=== PATIENT | male | born 1960 | race African-American/Black ===

== ENCOUNTER 2017-01-22 09:15 | Emergency (ER) | payer MEDICAID ==
--- NOTE | 2017-01-22 09:26 | EDPHY ---
H & P Stated Complaint: reported fell in [place] for multiple hours Time Seen by Provider: 01/22/17 09:26 - Personal History Current Tetanus/Diphtheria Vaccine: Yes Current Tetanus Diphtheria and Acellular Pertussis (TDAP): Yes Tetanus Vaccine Date: < 10 years - Medical/Surgical History Hx Asthma: No Hx Chronic Respiratory Disease: No Hx Diabetes: No Hx Cardiac Disease: No Hx Renal Disease: No Hx Cirrhosis: No Hx Alcoholism: No Hx HIV/AIDS: No Hx Splenectomy or Spleen Trauma: No Other PMH: HTN, CVA - Social History Smoking Status: Never smoked Constitutional: Initial Vital Signs Temperature (C) 36.3 C 01/22/17 09:15 Heart Rate 79 01/22/17 09:15 Respiratory Rate 20 01/22/17 09:15 Blood Pressure 164/114 H 01/22/17 09:15 O2 Sat (%) 94 01/22/17 09:15 O2 Delivery Mode Room Air Allergies/Adverse Reactions: No Known Allergies Allergy (Verified 01/22/17 09:20) Home Medications: Medication Instructions Recorded Aspirin [Aspirin 81mg (*)] 81 mg PO DAILY 09/14/15 Atorvastatin Calcium [Lipitor 80 80 mg PO DAILY #30 tablet 09/14/15 mg] Hydrochlorothiazide [HCTZ (*)] 12.5 mg PO DAILY #30 cap 09/14/15 Lisinopril [Zestril 20 mg (*)] 20 mg PO DAILY #30 tab 09/14/15 Metoprolol Tartrate [Lopressor 25 25 mg PO BID #60 tab 09/14/15 mg (*)] hydrALAZINE [Apresoline 50 mg (*)] 50 mg PO BID #60 tab 09/14/15 Xarelto 01/22/17 Medical Decision Making ED Course/Re-evaluation: CHIEF COMPLAINT: Environmental exposure HISTORY OF PRESENT ILLNESS: The patient is a 56 y/o male arriving via EMS after falling into a [place] for a couple of hours. He was unable to get up because the rocks were slippery. He is currently cold. Denies loss of consciousness, head injury, alcohol use. REVIEW OF SYSTEMS: A 10 point review of systems was performed and is negative with the exception of the elements mentioned in the history of present illness. PHYSICAL EXAM: HR, BP, O2 Sat, RR. Temp noted General Appearance: Alert, well hydrated, appropriate, and non-toxic appearing. Head: Atraumatic without scalp tenderness or obvious injury Eyes: Pupils equal, round, reactive to light and accommodation, EOMI, no trauma , no injection. Ears: Clear bilaterally, no perforation, normal landmarks Nose: Atraumatic, no rhinorrhea, clear. Throat: Mucus membranes moist. Neck: Supple, nontender, no lymphadenopathy. Respiratory: No retractions, no distress, no wheezes, and no accessory muscle use. Lungs are clear to auscultation bilaterally. Cardiovascular: Regular rate and rhythm, no murmurs, rubs, or gallops. Good capillary refill all extremities. Gastrointestinal: Abdomen is soft, nontender, non-distended, no masses, no rebound, no guarding, no peritoneal signs. Musculoskeletal: Normal active ROM of all extremities, atraumatic. Neurological: Alert, appropriate, and interactive. Non-focal neuro. Skin: No rashes, good turgor, no nodules on palpation. Past medical history: Hypertension, CVA Past surgical history: Denies Family history: Noncontributory Social history: Transient, non-smoker DIFFERENTIAL DIAGNOSIS: The differential diagnosis for the patient's hypothermia included but was not limited to hypothermia, intoxication, illicit drug use, or musculoskeletal injury. MEDICAL DECISION MAKING: The patient is a 56 y/o male presenting with mild hypothermia that is now resolved. His initial temperature was 36.3, his physical exam is normal. Reassessed patient, he is warmer. Return precautions provided; patient is comfortable with this plan. Departure - Departure Disposition: Home, Routine, Self-Care Clinical Impression: Hypothermia Qualifiers: Encounter type: initial encounter Qualified Code(s): T68.XXXA - Hypothermia, initial encounter Condition: Good Instructions: Acute Hypothermia (ED) Additional Instructions: 1. Follow-up with your primary doctor within 72 hours. 2. Return to the Emergency Department for fever, chest pain, shortness of breath , increasing pain or other worsening of condition. Referrals: [facility],. [Clinic] - As per Instructions Report Scribed for: Herberth Kilgore Report Scribed by: Jane Ng Date of Report: 01/22/17 Time of Report: 09:39
[2017-01-22 11:06] VITALS: BP 158/108; PULSE 74; RESP 16; TEMP 96.8; O2SAT 92
--- NOTE | 2017-01-22 11:30 | ASMTCMCOM ---
CM Note CM Note Notes: Patient brought into ED via EMS after being found in [place], reportedly he fell into the [place] and could not get out. Patient's clothes are wet and cold. Patient rewarmed with warm blankets, and provided dry clothes including t-shirt, sweater and pants. Patient provided dry socks. No shoes in patient's size were available. Patien's shoes to dry out. Patient states he has been staying with his girlfriend in [place] but came out to [place] "because I used to live out here and just wanted to come out here." Patient has not been to [facility] since August 2015. Patient states he has plans to stay with a friend here in [place] and eventually get his own apartment in [place]. Patient has no other requests at this time. CM available for further assistance. Date Signed: 01/22/2017 11:29 AM Electronically Signed By:Yesi Singer RN
--- NOTE | 2017-01-22 11:31 | ASDISCHSUM ---
Discharge Information Plan Status:Home with No Needs Medically Cleared to Leave: Discharge Date:01/22/2017 11:05 AM CM D/C Disposition:Home, Routine, Self-Care ADT D/C Disposition:Home, Routine, Self-Care Projected Discharge Date:01/22/2017 11:05 AM Transportation at D/C:Self Discharge Delay Reason: Follow-Up Date:01/22/2017 11:05 AM Discharge Slot: Final Diagnosis: Placement Information Patient Contact Information Contact Name:NEMO Relationship: Address:[address] Work Phone: City:[place] Alternate Phone: [facility]/Zip Code:[place] [address] Email: Financial Information Financial Class: Primary Plan Desc:[employer]ER Primary Plan Number:[id number] Secondary Plan Desc: Secondary Plan Number: Assessment Information [facility] CM Progress Note CM Note CM Note Notes: Patient brought into ED via EMS after being found in the [place], reportedly he fell into the [place] and could not get out. Patient's clothes are wet and cold. Patient rewarmed with warm blankets, and provided dry clothes including t-shirt, sweater and pants. Patient provided dry socks. No shoes in patient's size were available. Patien's shoes to dry out. Patient states he has been staying with his girlfriend in [place] but came out to [place] "because I used to live out here and just wanted to come out here." Patient has not been to [facility] since August 2015. Patient states he has plans to stay with a friend here in [place] and eventually get his own apartment in [place]. Patient has no other requests at this time. CM available for further assistance. Date Signed: 01/22/2017 11:29 AM Electronically Signed By:Yesi Singer RN LACE LACE Acuity / Level of Care Answers: No. Emergency dept visits in Answers: 1 last 6 months Score: 1 Date Signed: 01/22/2017 11:30 AM Electronically Signed By:Yesi Singer RN Intervention Information
--- NOTE | 2017-01-22 16:13 | ASMTCMCOM ---
CM Note CM Note Notes: Patient was discharged to the waiting room and was expecting a friend to come pick him up. This CM went out to the and patient was still there a couple of hours later. Spoke with patient and this CM attempted several times to contact his friend Nicole; we were finally able to figure out her correct number ([phone]) and get a hold of her. She was unable to come pick him up so this CM provided him with a bus pass, information on the Coordinated Entry process, [facility] Path to Home shelters and [facility], [facility], and other homeless resources. Patient hopes to stay with a friend bella but will go to one of the senior care options if necessary. Pt very pleasant and appreciative. CM available for further assistance. Date Signed: 01/22/2017 04:13 PM Electronically Signed By:Yesi Singer RN
== END 2017-01-22 11:05 | disposition home or self-care (01) ==
LOC: EDUNIT#
DX: T68.XXXA Hypothermia, initial encounter (principal); I10 Essential (primary) hypertension; Z86.73 Personal history of transient ischemic attack (TIA), and cerebral infarction without residual deficits; Z79.82 Long term (current) use of aspirin; Z79.01 Long term (current) use of anticoagulants; W18.39XA Other fall on same level, initial encounter; X31.XXXA Exposure to excessive natural cold, initial encounter; Y99.8 Other external cause status

== ENCOUNTER 2017-07-07 18:14 | Emergency (ER) | payer MEDICAID ==
[2017-07-07] MEDS ORDERED: MAG HYDROX/AL HYDROX/SIMETH 30 ML UDCUP PO ONE (18:41)
[2017-07-07] MEDS ORDERED: HYOSCYAMINE SULFATE 0.125 MG TAB PO ONE (18:41)
[2017-07-07] MEDS ORDERED: LIDOCAINE 2% VISCOUS 15 ML UDCUP PO ONE (18:41)
--- NOTE | 2017-07-07 18:44 | EDPHY ---
H & P Stated Complaint: "burning" abdominal pain x 1 hour, denies n/v/d Time Seen by Provider: 07/07/17 18:36 HPI/ROS: CHIEF COMPLAINT: Epigastric burning sensation HISTORY OF PRESENT ILLNESS: 56-year-old male presents with epigastric burning sensation. The burning sensation is moderate and constant, onset 1 hr ago. No medications tried. No associated symptoms. No prior similar episodes had no history of ulcer. REVIEW OF SYSTEMS: complete 10 point ROS negative except at noted in the HPI - Personal History Tetanus Vaccine Date: < 10 years - Medical/Surgical History Hx Asthma: No Hx Chronic Respiratory Disease: No Hx Diabetes: No Hx Cardiac Disease: No Hx Renal Disease: No Hx Cirrhosis: No Hx Alcoholism: No Hx HIV/AIDS: No Hx Splenectomy or Spleen Trauma: No Other PMH: HTN, CVA, appentectomy - Social History Smoking Status: Never smoked Alcohol Use: Rarely Drug Use: None Additional Social History: Homeless Prior methamphetamine abuse - Physical Exam Exam: General Appearance: Alert, pleasant Eyes: Pupils equal and round, no conjunctival pallor ENT, Mouth: Mucous membranes moist Neck: Normal inspection Respiratory: Lungs are clear to auscultation Cardiovascular: Regular rate and rhythm Gastrointestinal: Abdomen is soft, mild epigastric tenderness Neurological: A&O, nonfocal, normal gait Skin: Warm and dry Extremities: Normal inspection Psychiatric: Mood and affect normal Constitutional: Initial Vital Signs Temperature (C) 36.4 C 07/07/17 18:29 Heart Rate 74 07/07/17 18:29 Respiratory Rate 18 07/07/17 18:29 Blood Pressure 154/109 H 07/07/17 18:29 O2 Sat (%) 100 07/07/17 18:29 O2 Delivery Mode Room Air Allergies/Adverse Reactions: No Known Allergies Allergy (Verified 07/07/17 18:28) Home Medications: Medication Instructions Recorded Aspirin [Aspirin 81mg (*)] 81 mg PO DAILY 09/14/15 Atorvastatin Calcium [Lipitor 80 80 mg PO DAILY #30 tablet 09/14/15 mg] Hydrochlorothiazide [HCTZ (*)] 12.5 mg PO DAILY #30 cap 09/14/15 Lisinopril [Zestril 20 mg (*)] 20 mg PO DAILY #30 tab 09/14/15 Metoprolol Tartrate [Lopressor 25 25 mg PO BID #60 tab 09/14/15 mg (*)] hydrALAZINE [Apresoline 50 mg (*)] 50 mg PO BID #60 tab 09/14/15 Xarelto 01/22/17 Medical Decision Making ED Course/Re-evaluation: This patient presents with epigastric burning, consistent with acute gastritis/ PUD. GI cocktail given. Feels better after GI cocktail. Abdominal exam remains benign. Protonix 40 mg orally given. Abdominal pain precautions given. Will follow up with PCP. Differential Diagnosis: Differential diagnosis includes though it is not limited to appendicitis, cholecystitis, diverticulitis, pyelonephritis, bowel perforation, small bowel obstruction. - Data Points Medications Given: Discontinued Medications Al Hydroxide/Mg Hydroxide (Maalox Susp) 30 ml PO ONCE ONE Stop: 07/07/17 18:42 Last Admin: 07/07/17 18:47 Dose: 30 ml Hyoscyamine Sulfate (Levsin, Hyomax-Sl) 0.25 mg PO ONCE ONE Stop: 07/07/17 18:42 Last Admin: 07/07/17 18:47 Dose: 0.25 mg Lidocaine (Lidocaine 2% Viscous) 15 ml PO ONCE ONE Stop: 07/07/17 18:42 Last Admin: 07/07/17 18:47 Dose: 15 ml Pantoprazole Sodium (Protonix) 40 mg PO EDNOW ONE Stop: 07/07/17 19:26 Last Admin: 07/07/17 19:33 Dose: 40 mg Departure - Departure Disposition: Home, Routine, Self-Care Clinical Impression: Acute gastritis Qualifiers: Gastritis type: unspecified gastritis Gastritis bleeding: without bleeding Qualified Code(s): K29.00 - Acute gastritis without bleeding Condition: Good Instructions: Gastritis (ED) Additional Instructions: Take Maalox before meals and at bedtime. Take Zantac over the counter as needed. Avoid spicy foods. Your blood pressure is high in the emergency dept. today, followup with PCP to have this rechecked. The [facility] has walk-in appointments for the homeless at the following days/locations. No appointment is needed. Wednesday 8-10 am @ [facility] 11 AM-1 PM @ [facility] Wednesday 8-10:30 AM @ [facility] Wednesday 8-10 AM @ [facility] 2-4 PM @ [facility] [place] 8-10 AM @ [facility] Referrals: [facility],. [Clinic] - As per Instructions
[2017-07-07] MEDS ORDERED: PANTOPRAZOLE SODIUM 40 MG TAB PO ONE (19:25)
[2017-07-07 19:35] VITALS: BP 164/115
== END 2017-07-07 19:47 | disposition home or self-care (01) ==
DX: K29.00 Acute gastritis without bleeding (principal); I10 Essential (primary) hypertension; Z79.01 Long term (current) use of anticoagulants; Z79.82 Long term (current) use of aspirin; Z86.73 Personal history of transient ischemic attack (TIA), and cerebral infarction without residual deficits; Z90.49 Acquired absence of other specified parts of digestive tract